=== PATIENT | female | born 1970 | race Caucasian/White ===

== ENCOUNTER 2017-03-14 16:48 | Emergency (ER) | payer SELFPAY ==
[~2017-03-14] VITALS: Ht 157.5 cm; Wt 84.5 kg
[2017-03-14 16:52] VITALS: Ht 157.5 cm; Wt 84.5 kg
[2017-03-14] MEDS ORDERED: KETOROLAC 60 MG INJ IM STA (17:03)
--- NOTE | 2017-03-14 19:54 | ERD ---
ER Documentation Chief Complaint Date/Time DATE: 03/14/17 TIME: 19:52 Chief Complaint hand/fingers pain no trauma HPI This 46-year-old female presents with multiple complaints. Treatment of low back pain and pain and stiffness in her bilateral hands and fingers. She denies any history of trauma or inciting events. She feels like she may have had a fever a few days ago but has no measured temperature, cough, shortness of breath or chest pain ROS All systems reviewed and are negative except as per history of present illness. PMhx/Soc Medical and Surgical Hx: pt denies Medical Hx, pt denies Surgical Hx Physical Exam Vitals Vital Signs Date Time Temp Pulse Resp B/P Pulse Ox O2 Delivery O2 Flow Rate FiO2 03/14/17 16:52 98.4 91 20 132/79 99 Physical Exam Const: [] Alert, [id number]. Head: Atraumatic Eyes: Normal Conjunctiva ENT: Normal External Ears, Nose and Mouth. Neck: Full range of motion..~ No meningismus. Resp: Clear to auscultation bilaterally Cardio: Regular rate and rhythm, no murmurs Abd: Soft, non tender, non distended. Normal bowel sounds Skin: No petechiae or rashes Back: No midline or flank tenderness Ext: No cyanosis, or edema. Minimal tenderness and possible mild synovitis in the bilateral hands at the MCP and PIP joints there is no warmth, erythema, restricted range of motion weakness. There is no rashes. There is no signs of ischemia. Neur: Awake and alert Psych: Normal Mood and Affect Results 24 hrs Current Medications Medications (Trade) Dose Ordered Sig/Elle Route PRN Reason Start Time Stop Time Status Last Admin Dose Admin Ketorolac Tromethamine (Toradol) 60 mg ONCE STAT IM 03/14/17 17:03 03/14/17 17:05 DC Procedures/MDM This patient presents with bilateral upper extremity arthralgias of uncertain etiology. CBC and CMP were ordered but patient was nowhere to be found after administering Toradol 60 mg IM. Good oscar effort was to locate the patient to no avail. Patient was stable amatory [id number] throughout ED course no signs of distress. Patient was marked as eloped after unable to locate. Departure Diagnosis: Primary Impression: Pain of hand Laterality: bilateral Qualified Code: M79.641 - Pain in both hands Condition: Stable Patient Instructions: Arthralgia TEEHEE,MELI N. MD March 14, 2017 19:54
== END 2017-03-14 23:02 | disposition left against medical advice (07) ==
LOC: FTE 16:48
DX: M79.641 Pain in right hand (principal); M79.642 Pain in left hand
CPT/HCPCS: 99282

== ENCOUNTER 2017-06-19 22:48 | Emergency (ER) | payer SELFPAY ==
[~2017-06-19] VITALS: Ht 162.6 cm; Wt 81.5 kg
[2017-06-19 22:51] VITALS: Ht 162.6 cm; Wt 81.5 kg
[2017-06-19] MEDS ORDERED: SOD CHLORIDE 0.9% 1,000 ML IV STA (23:44)
[2017-06-19] MEDS ORDERED: ONDANSETRON 4 MG INJ IV STA (23:44)
[2017-06-19] MEDS ORDERED: LIDOCAINE/MYLANTA 40 ML BTL PO STA (23:44)
[2017-06-19] MEDS ORDERED: FAMOTIDINE 20 MG INJ IV STA (23:44)
--- NOTE | 2017-06-20 00:27 | RADRPT ---
PROCEDURE: Ultrasound of the abdomen. CLINICAL INDICATION: Right upper quadrant pain. TECHNIQUE: Sonographic images of the abdomen were performed. COMPARISON: No pertinent prior examinations were submitted for comparison. FINDINGS: Liver: The liver is normal in echogencity and size measuring approximately 16.9 cm. The hepatic vei ns and portal veins are patent with appropriate directional flow. No intrahepatic ductal dilatation is seen. Gallbladder: The gallbladder is not distended and has normal wall thickness. No pericholecystic flu id or gallstones are visualized. The common duct measures 3.2 mm. Pancreas: There is limited evaluation of the pancreatic body and tail. The visualized portions of the pancreas are unremarkable. Kidneys: The right kidney measures 9.9 cm. There is normal corticomedullary differentiation. There is no evidence of renal calculus or hydronephrosis. IVC: The visualized portion of the inferior vena cava is unremarkable. Aorta: Normal in size. Free fluid: None. IMPRESSION: Unremarkable right upper quadrant of sound. RPTAT: HIKT .Chip Goel MD, MD Date Time Electronically viewed and signed by .Chip Goel MD, on 06/20/2017 00:27 .T/
[2017-06-20 00:34] LABS: URINE BLOOD (Dip) POC Negative (NEGATIVE)
[2017-06-20 01:05] LABS: ALBUMIN/GLOBULIN RATIO 1.14; BILIRUBIN,INDIRECT 0.2 mg/dl (0-1.1); BILIRUBIN,TOTAL 0.2 mg/dl (0.2-1.3); CALCIUM 9.1 mg/dl (8.4-10.2); CREATININE 0.53 mg/dl (0.44-1.00); POTASSIUM 4.2 mmol/L (3.5-5.1); TOTAL PROTEIN 7.5 g/dl (6.1-8.1)
--- NOTE | 2017-06-20 01:23 | ERD ---
ER Documentation Chief Complaint Date/Time DATE: 06/20/17 TIME: 01:22 Chief Complaint RUQ abd pain x 15 days (CATHERINE YU NP) HPI This is a 46-year-old female presenting to emergency department with right upper quadrant abdominal pain 15 days. Patient states pain feels like a pressure and rates pain 8/10. Patient denies pain radiating. No fevers or chills. No vomiting or diarrhea. No aggravating or relieving factors. Patient did not take any medications at home. Patient has history of cholecystectomy and hysterectomy. (CATHERINE YU NP) ROS All systems reviewed and are negative except as per history of present illness. (CATHERINE YU NP) Medications Home Meds Active Scripts Famotidine* (Pepcid*) 20 Mg Tablet, 20 MG PO BID for 4 Days, TAB Prov:CATHERINE YU NP 06/20/17 Allergies Allergies: Coded Allergies: No Known Allergy (Unverified , 06/19/17) PMhx/Soc Anesthesia Reaction: No Hx Neurological Disorder: No Hx Respiratory Disorders: No Hx Cardiac Disorders: No Hx Psychiatric Problems: No Hx Miscellaneous Medical Probl: Yes (GASTRITIS, FATTY LIVER ) Hx Alcohol Use: No Hx Substance Use: No Hx Tobacco Use: No Smoking Status: Never smoker (CATHERINE YU NP) Physical Exam Vitals Vital Signs Date Time Temp Pulse Resp B/P Pulse Ox O2 Delivery O2 Flow Rate FiO2 06/20/17 03:19 98.6 83 20 139/92 98 Room Air 06/19/17 22:51 98.3 71 20 117/74 98 (REJI BISHOP) Physical Exam Const: No acute distress, alert Head: Atraumatic Eyes: Normal Conjunctiva ENT: Normal External Ears, Nose and Mouth. Neck: Full range of motion..~ No meningismus. Resp: Clear to auscultation bilaterally Cardio: Regular rate and rhythm, no murmurs Abd: Soft, non distended. Normal bowel sounds, tenderness to palpation of epigastric region. Skin: No petechiae or rashes Back: No midline or flank tenderness Ext: No cyanosis, or edema Neur: Awake and alert Psych: Normal Mood and Affect (CATHERINE YU NP) Result Diagram: 06/20/17 0205 06/20/17 0032 Results 24 hrs Laboratory Tests Test 06/20/17 00:32 06/20/17 00:38 06/20/17 02:05 Sodium Level 141mmol/L Potassium Level 4.2mmol/L Chloride Level 102mmol/L Carbon Dioxide Level 24mmol/L Anion Gap 19 Blood Urea Nitrogen 10mg/dl Creatinine 0.53mg/dl Glucose Level 119mg/dl Calcium Level 9.1mg/dl Total Bilirubin 0.2mg/dl Direct Bilirubin 0.00mg/dl Indirect Bilirubin 0.2mg/dl Aspartate Amino Transf (AST/SGOT) 26IU/L Alanine Aminotransferase (ALT/SGPT) 30IU/L Alkaline Phosphatase 98IU/L Total Protein 7.5g/dl Albumin 4.0g/dl Globulin 3.50g/dl Albumin/Globulin Ratio 1.14 Lipase 69U/L Bedside Urine pH (LAB) 7.0 Bedside Urine Protein (LAB) Negative Bedside Urine Glucose (UA) Negative Bedside Urine Ketones (LAB) Negative Bedside Urine Blood Negative Bedside Urine Nitrite (LAB) Negative Bedside Urine Leukocyte Esterase (L Negative White Blood Count 10.210^3/ul Red Blood Count 4.3810^6/ul Hemoglobin 13.0g/dl Hematocrit 39.2% Mean Corpuscular Volume 89.5fl Mean Corpuscular Hemoglobin 29.7pg Mean Corpuscular Hemoglobin Concent 33.2g/dl Red Cell Distribution Width 12.7% Platelet Count 58219^3/UL Mean Platelet Volume 9.2fl Neutrophils % 71.4% Lymphocytes % 23.1% Monocytes % 3.8% Eosinophils % 1.0% Basophils % 0.4% Nucleated Red Blood Cells % 0.0/100WBC Neutrophils # (Manual) 710^3/ul Lymphocytes # 2.410^3/ul Monocytes # 0.410^3/ul Eosinophils # 0.110^3/ul Basophils # 0.010^3/ul Nucleated Red Blood Cells # 0.010^3/ul Current Medications Medications (Trade) Dose Ordered Sig/Elle Route PRN Reason Start Time Stop Time Status Last Admin Dose Admin Sodium Chloride (NS) 1,000 ml @ 1,000 mls/hr Q1H STAT IV 06/19/17 23:44 06/20/17 00:43 DC 06/20/17 00:47 Ondansetron HCl (Zofran Inj) 4 mg ONCE STAT IV 06/19/17 23:44 06/19/17 23:47 DC 06/20/17 00:47 Famotidine (Pepcid Iv) 20 mg ONCE STAT IV 06/19/17 23:44 06/19/17 23:47 DC 06/20/17 00:47 Miscellaneous Medication (Gi Cocktail (2)) 40 ml ONCE STAT PO 06/19/17 23:44 06/19/17 23:47 DC 06/20/17 00:47 (REJI BISHOP) Procedures/MDM [place] [address] [facility] Main Line: [phone] DIAGNOSTIC IMAGING REPORT Patient: DIONNA COVARRUBIAS : 1970 Age: 46 Sex: F MR #: [id number] DOS: 06/19/17 2344 Ordering MD: CATHERINE YU NP Location: [facility] Room/Bed: PROCEDURE: Ultrasound of the abdomen. CLINICAL INDICATION: Right upper quadrant pain. TECHNIQUE: Sonographic images of the abdomen were performed. COMPARISON: No pertinent prior examinations were submitted for comparison. FINDINGS: Liver: The liver is normal in echogencity and size measuring approximately 16.9 cm. The hepatic veins and portal veins are patent with appropriate directional flow. No intrahepatic ductal dilatation is seen. Gallbladder: The gallbladder is not distended and has normal wall thickness. No pericholecystic fluid or gallstones are visualized. The common duct measures 3.2 mm. Pancreas: There is limited evaluation of the pancreatic body and tail. The visualized portions of the pancreas are unremarkable. Kidneys: The right kidney measures 9.9 cm. There is normal corticomedullary differentiation. There is no evidence of renal calculus or hydronephrosis. IVC: The visualized portion of the inferior vena cava is unremarkable. Aorta: Normal in size. Free fluid: None. IMPRESSION: Unremarkable right upper quadrant of sound. [place] [address] [facility] Main Line: [phone] DIAGNOSTIC IMAGING REPORT Patient: DIONNA COVARRUBIAS : 1970 Age: 46 Sex: F MR #: [id number] DOS: 06/19/17 2344 Ordering MD: CATHERINE YU NP Location: [facility] Room/Bed: PROCEDURE: CT abdomen and pelvis without contrast. CLINICAL INDICATION: Right upper abdominal pain. TECHNIQUE: Noncontrast CT examination of the abdomen and pelvis, with axial, sagittal and coronal reformatted images.. CTDI: 17.15 mGy and DLP: 992.56 mGy-cm. COMPARISON: None. FINDINGS: CT abdomen: The lung bases are clear. The heart size is normal, without pericardial thickening or effusion. The liver is normal in size and density without focal mass or intrahepatic biliary dilatation. The spleen is normal in size and homogeneous in density. The stomach is partially collapsed, but is grossly unremarkable. The pancreas as visualized is normal. The gallbladder and biliary tree are unremarkable and there is no evidence for biliary dilatation. The adrenal glands are symmetric and normal. The kidneys are symmetrically unremarkable as well. No renal calculus or obstructive uropathy or mass lesion is seen. The aorta is of normal caliber. No aortic vascular calcifications are present. There is no retroperitoneal lymphadenopathy. The richi hepatis region is clear. The bowel and mesentery, as visualized, are equally unremarkable. CT pelvis: The small bowel loops situated within the pelvis are unremarkable. The pelvic organs are normal. The pelvic sidewalls and inguinal regions are clear. The sigmoid colon and rectum are all unremarkable. No mass, lymphadenopathy, or free fluid is seen. No acute inflammation is seen. The appendix is unremarkable. The surrounding osseous structures are remarkable for mild degenerative spondylosis of the spine. No osteolytic or osteoblastic lesion is detected. IMPRESSION: Unremarkable CT scan of the abdomen and pelvis. MDM: This is a 46-year-old female presenting to emergency department with right upper quadrant abdominal pain 15 days. Denies vomiting or diarrhea. Patient given Pepcid, GI cocktail and Zofran p.o. while in ED. P.o. challenge successful. No active vomiting. Right upper quadrant ultrasound reviewed by radiologist is unremarkable. CT abdomen pelvis reviewed by radiologist is unremarkable. CMP and lipase are within normal limits. Liver enzymes are normal. Bilirubin is normal. Creatinine is normal. Urine is negative for infection. Urine is negative. Patient states she is feeling better. Vital signs are stable. Patient appears stable for discharge home. Assuming that CBC is within normal limits patient will be sent home with prescription for Pepcid. Instructed patient to follow-up with primary care provider in the next 2-3 days for reassessment. Return to ED for any high fever , chest pain, difficulty breathing, shortness breath, wheezing, vomiting, diarrhea, abdominal pain or any new or worsening symptoms. Patient verbalizes understanding. All questions answered at discharge. Canadian translation used during this encounter. Patient is signed out to Reji Bishop NP pending CBC. (JIMENA,CATHERINE Villegas NP) Patient was initially seen by Catherine Yu NP. Diagnostic tests was done. Examination: Please see physical examination by Catherine Yu Disease process, medical treatment was explained to the patient and family member. They verbalized understanding and agreed with the diagnostic tests, medical treatment, and follow-up care. Re-evaluation: Denies headache, dizziness, blurry vision, neck pain, shoulder pain, chest pain, back pain, abdominal pain, nausea, vomiting. No episode of emesis in the emergency department. Alert and oriented 4. Speaks full and clear sentences. Respirations even and unlabored. Lung sounds clear to auscultation. Active bowel sounds. There is no right upper/right lower/ epigastric/left upper/left lower abdominal tenderness and light and deep palpation. Negative on Rovsings sign. Negative Cortez sign. Able to jump 5 times without developing right-sided abdominal pain. No peritoneal signs. Ambulatory with steady gait. No neurovascular deficits. No neurological deficits. Consultation: None. Medical decision making: Discharge with a final diagnosis of epigastric pain. Medications prescribed are the following: Written by Catherine Yu NP. Patient and family member are made aware of the side effects and adverse reactions of the medications prescribed. Instructed on when to seek emergent and medical attention in case allergic/anaphylactic reactions or severe side effects and or adverse reactions to medications. Patient and family member verbalized understanding. Patient instructed Instructed to follow-up with his PCP in 24-48 hours. Instructed to Call 911 for chest pain, shortness of breath. Advised to come back here in ED as soon as possible for severity of symptoms which includes but not limited to: any new symptoms; shortness of breath/difficulty of breathing; cardiovascular changes; severe gastrointestinal symptoms; signs and symptoms of bleeding and or infection; signs of compartment syndrome/neurovascular changes; neurological changes/deficits. Patient and family member verbalized understanding. Upon discharge, patient is alert and oriented x 4, speaks full and clear sentences, denies pain, has no neurological deficits, has no neurovascular deficits, difficulty of breathing. Breathing even and unlabored. Lung sounds are clear to auscultation. Not in distress. Appears comfortable. Ambulatory with steady gait. Appears satisfied with care provided here in ED. (REJI BISHOP) Departure Diagnosis: Primary Impression: Abdominal pain Abdominal location: right upper quadrant Qualified Code: R10.11 - Right upper quadrant abdominal pain Condition: Stable CATHERINE YU NP Jun 20, 2017 01:23 REJI BISHOP Jun 20, 2017 07:35
--- NOTE | 2017-06-20 01:25 | RADRPT ---
PROCEDURE: CT abdomen and pelvis without contrast. CLINICAL INDICATION: Right upper abdominal pain. TECHNIQUE: Noncontrast CT examination of the abdomen and pelvis, with axial, sagittal and coronal r eformatted images.. CTDI: 17.15 mGy and DLP: 992.56 mGy-cm. COMPARISON: None. FINDINGS: CT abdomen: The lung bases are clear. The heart size is normal, without pericardial thickening or effusion. The liver is normal in size and density without focal mass or intrahepatic biliary dilatation. The spleen is normal in size and homogeneous in density. The stomach is partially collapsed, but is chester ssly unremarkable. The pancreas as visualized is normal. The gallbladder and biliary tree are unre markable and there is no evidence for biliary dilatation. The adrenal glands are symmetric and norm al. The kidneys are symmetrically unremarkable as well. No renal calculus or obstructive uropathy o r mass lesion is seen. The aorta is of normal caliber. No aortic vascular calcifications are present. There is no retrope ritoneal lymphadenopathy. The richi hepatis region is clear. The bowel and mesentery, as visualize d, are equally unremarkable. CT pelvis: The small bowel loops situated within the pelvis are unremarkable. The pelvic organs are normal. T he pelvic sidewalls and inguinal regions are clear. The sigmoid colon and rectum are all unremarkab le. No mass, lymphadenopathy, or free fluid is seen. No acute inflammation is seen. The appendix is unremarkable. The surrounding osseous structures are remarkable for mild degenerative spondylosis of the spine. N o osteolytic or osteoblastic lesion is detected. IMPRESSION: Unremarkable CT scan of the abdomen and pelvis. RPTAT: [facility] Physician Yo Date Time Electronically viewed and signed by Physician Yo on 06/20/2017 01:25 RS/
[2017-06-20] MEDS ORDERED: FAMO-96 PO (01:33)
[2017-06-20 02:17] LABS: BASOPHILS % 0.4 % (0.0-2.0); EOSINOPHILS # 0.1 10^3/ul (0.0-0.5); HEMATOCRIT 39.2 % (37.0-47.0); LYMPHOCYTES # 2.4 10^3/ul (0.8-2.9); LYMPHOCYTES % 23.1 % (15.0-51.0); MEAN CORPUSCULAR HEMOGLOBIN 29.7 pg (29.0-33.0); MEAN CORPUSCULAR HGB CONC 33.2 g/dl (32.0-37.0); MEAN CORPUSCULAR VOLUME 89.5 fl (82.0-101.0); MEAN PLATELET VOLUME 9.2 fl (7.4-10.4); MONOCYTE # 0.4 10^3/ul (0.3-0.9); MONOCYTES % 3.8 % (0.0-11.0); NEUTROPHILS % 71.4 % (39.0-77.0); PLATELET COUNT 369 10^3/UL (140-415); RED BLOOD COUNT 4.38 10^6/ul (4.20-5.40); RED CELL DISTRIBUTION WIDTH 12.7 % (11.5-14.5); WHITE BLOOD COUNT 10.2 10^3/ul (4.8-10.8)
[2017-06-20 03:19] VITALS: BP 139/92; PULSE 83; RESP 20; TEMP 98.6
== END 2017-06-20 03:22 | disposition home or self-care (01) ==
LOC: FTE 22:48
DX: R10.11 Right upper quadrant pain (principal)
CPT/HCPCS: 36415; 74176; 76705; 80053; 81003; 83690; 85025; 96374; 96375; 99285; J2405; J7030